=== PATIENT | female | born 1955 | race Caucasian/White ===

== ENCOUNTER 2017-01-10 10:24 | Day surgery (SDC) | payer OTHER ==
[~2017-01-10] VITALS: Ht 157.5 cm; Wt 74.8 kg
[~2017-01-10 10:24] MED LIST: 0.9% Sodium Chloride 1,000 ML IV SCH; ALPR0.254 PO; HYDR-4003 PO; LISI10TA PO; MORP20SO PO; PROP10TA8 PO; Sodium Chloride LOK Flush 10 mL Syringe IV PRN; fentaNYL-PF 50 mCg/mL 2 mL Inj IVPUSH PRN
[2017-01-10] MEDS ORDERED: METO25TA6 PO (11:46)
[2017-01-10 11:48] VITALS: BP 127/83; PULSE 59; RESP 12; O2SAT 97
[2017-01-10 12:34] VITALS: BP 128/76; PULSE 62; RESP 20
--- NOTE | 2017-01-10 12:36 | PCM.ENDCOL ---
Colonoscopy Date of Service: January 10, 2017 Physician Yonathan Garibay MD Pre Procedure Diagnosis: Diarrhea Post Procedure Dx & Findings: Polyp hemorrhoids diverticuli Procedure Colonoscopy PROCEDURE IN DETAIL: Prep adequate Withdrawal time 16 minutes After unremarkable rectal examination the Olympus video colonoscope was inserted patient's anal canal and was advanced to cecum. Landmarks were identified including the ileocecal valve and appendiceal orifice. Scope further advanced to terminal ileum. We advanced about 5-6 cm. The terminal ileum showed normal villous structures without any ulcer mass erosions. Scope was withdrawn systematically. Visualized colonic mucosa showed healthy shiny mucosa with normal healthy-appearing vasculature. In the ascending colon, there were total of 3 polyps. One of them was 1 mm in size. This was removed completely using cold forceps. There are 2 polyps and there were about 2-3 mm in size which were both removed completely using cold snare. One of the polyp was lost during retrieval process. In the transverse colon, there were 2 polyps that were about 2-3 mm in size. These polyps were removed completely using cold snare. In the transverse colon there was a 1 mm polyp was removed completely using cold forceps. Random biopsy was obtained from the cecum to the rectum. This is workup for diarrhea. Patient had diverticuli mostly in the sigmoid colon ease her about small to medium size. In the rectum retroflexion was done which showed hemorrhoids. Anal canal was inspected carefully on the way out and hemorrhoids noted. Impression Polyps 6 status post complete removal Normal TI Random biopsies Diverticula Hemorrhoids Recommendation Repeat colonoscopy 3 years Follow up in GI clinic with Dr. Malik to go over the biopsy. If diarrhea still persists, would obtain celiac profile and upper endoscopy. Would also do further stool studies including fecal fat and gastric empty study. Presedation Assessment Risks and Benefits Informed consent was obtained from the patient after all risks and benefits including but not limited to drug reaction, infection, pain, bleeding, perforation, as well as alternatives were discussed. Patient monitoring Continuous pulse oximetry, cardiac monitoring, blood pressure monitoring, IV access, and oxygen at 2L per nasal cannula. Periprocedural Fentanyl: Fentanyl 200mcg Incrementally Midazolam: Midazolam 10mg Incrementally Complications There were no periprocedural complications identified. Post Procedure Plan Post Procedure Recommendations 1. Restrict activities today. 2. Resume normal activities in the morning. 3. Resume medications. 4. Patient informed of normal post procedure side effects as bloating, drowsiness, blood streaking in the stool. 5. average risk CRCS. If colon polyps come back as: -Hyperplastic- can repeat colonoscopy in 10 years -Tubular adenoma- repeat colonoscopy in 5 years -Tubulovillous/villous adenoma- repeat colonoscopy in 3 years -If any dysplasia- return to clinic as soon as possible 6. Please don't hesitate to call me with any questions. Yonathan Garibay MD January 10, 2017 12:36
[2017-01-10 12:40] VITALS: BP 127/86; PULSE 18; RESP 13; O2SAT 100
[2017-01-10 12:50] VITALS: BP 132/77; PULSE 56; RESP 13; O2SAT 99
--- NOTE | 2017-01-11 10:42 | PATH ---
SURGICAL PATHOLOGY Attending Physician:Yonathan Garibay M.D. CASE STATUS: Signed Out PATIENT NAME: MADHURI JAIN PID: [id number] : 1955 DATE COLLECTED:01/10/2017 22:19 SPECIMEN: 1: Colon, Biopsy 2: Colon, Biopsy 3: Colon, Biopsy CLINICAL HISTORY: DIARRHEA 1). ASCENDING COLON POLYPS X3 2). TRANSVERSE COLON POLYPS X2 3). RANDOM COLON BIOPSY FINAL DIAGNOSIS: 1.ASCENDING COLON POLYPS: TUBULAR ADENOMA INVOLVING TWO BIOPSY FRAGMENTS. SESSILE SERRATED ADENOMA INVOLVING SINGLE BIOPSY FRAGMENT. 2.TRANSVERSE COLON POLYPS: TUBULAR ADENOMA INVOLVING TWO BIOPSY FRAGMENTS. 3.RANDOM COLON BIOPSIES: FRAGMENTS OF NORMAL-APPEARING COLON MUCOSA. Negative for significant architectural distortion. Negative for significant inflammation, dysplasia and malignancy. ICD10 D12.2 GROSS DESCRIPTION: The specimen is received in three formalin filled containers labeled with the patient's name. 1). The specimen is sublabeled "ascending colon polyps" and consists of 4 portions of tissue which aggregate to 0.4 x 0.4 x 0.3 CM. The specimen is entirely submitted in cassette 1A. 2). The specimen is sublabeled "transverse colon polyps" and consists of 2 portions of tissue which aggregate to 0.3 x 0.3 x 0.3 CM. The specimen is entirely submitted in cassette 2A. 3). The specimen is sublabeled "random colon" and consists of multiple portions of tissue which aggregate to 0.5 x 0.5 x 0.3 CM. The specimen is entirely submitted in cassette 3A. 01/10/2017 [facility] MICRO DESCRIPTION: See diagnosis. ICD-9 CODES: CPT CODES: 1: 14168 2: 02339 3: 78205 Electronically Signed Out Juan A Gonzales MD [id number], [place] [address] Technical component performed at [facility], [facility] [address], [place], [address]
== END 2017-01-10 23:59 | disposition home or self-care (01) ==
LOC: END 10:24
PROVIDERS: ATTEND Internal Medicine
DX: D12.2 Benign neoplasm of ascending colon (principal); D12.3 Benign neoplasm of transverse colon; K57.30 Diverticulosis of large intestine without perforation or abscess without bleeding; K64.9 Unspecified hemorrhoids; R19.7 Diarrhea, unspecified; A04.7 Enterocolitis due to Clostridium difficile; F41.9 Anxiety disorder, unspecified; Z86.010 Personal history of colon polyps; Z86.14 Personal history of Methicillin resistant Staphylococcus aureus infection
CPT/HCPCS: 45380; 45385; 99153; G0500; J7030